=== PATIENT | female | born 1945 | race Caucasian/White ===

== ENCOUNTER 2021-12-12 09:16 | Emergency (ER) | payer MEDICARE ==
[~2021-12-12 09:16] MED LIST: ADULT LOW DOSE81 MG PO; ADVAIR 500-501 EACH INH; AMBIEN10 MG PO; ATIVAN1 MG PO; ATROVENT INH S2.5 ML NEB; DAILY MULTIPLE1 EAC1; DIFLUCAN150 MG PO; FEOSOL325 MG PO; ISOSORBIDE MONO30 MG PO; KEFLEX500 MG PO; LANTUS SOL100 UNIT/1 SC; LIPITOR40 MG PO; METOPROLOL SUCC25 MG PO; NEURONTIN 300300 MG PO; NORCO 10-325 T1 EACH PO; NORVASC10 MG PO; ONE DAILY WOME1 EAC1; PERFOROMIS20 MCG/2 M INH; PHENERGAN 25 MG25 M1 PO; PREDNISONE 20 M20 MG PO; PROZAC20 MG PO; PROZAC40 MG; PULMICORT0.5 MG/2 M NEB; SYNTHROID 125125 MCG PO; VENTOLIN/PROVE0.5 ML NEB; VITAMIN B-1000 MCG/M IM; VITAMIN B12-FO1 EACH IM; XOPENEX HFA15 GM INH; ZOLPIDEM TARTRA10 MG PO
[2021-12-12 10:07] LABS: HEMOGLOBIN 13.1 gm/dl (12.3-15.3); RED BLOOD COUNT 3.94 M/UL (4.00-5.10); WHITE BLOOD COUNT 7.6 K/UL (4.5-11.0)
[2021-12-12] MEDS ORDERED: ZOFRAN ODT 4 MG4 MG SL (14:51)
== END 2021-12-12 15:41 | disposition home or self-care (01) ==
LOC: ER1 09:16
PROVIDERS: Emergency Medicine
DX: R11.2 Nausea with vomiting, unspecified (principal); R19.7 Diarrhea, unspecified; R10.30 Lower abdominal pain, unspecified; I10 Essential (primary) hypertension; Z98.84 Bariatric surgery status
CPT/HCPCS: 80053; 81001; 83690; 85025; 96361; 96374; 96375; 96376; 99284; J2270; J2405; Q9967

== ENCOUNTER 2021-12-24 16:27 | Emergency (ER) | payer MEDICARE ==
[~2021-12-24 16:27] MED LIST changes: +ZOFRAN ODT 4 MG4 MG SL
[2021-12-24 18:44] LABS: HEMOGLOBIN 12.2 gm/dl (12.3-15.3); RED BLOOD COUNT 3.7 M/UL (4.00-5.10); WHITE BLOOD COUNT 15.4 K/UL (4.5-11.0)
[2021-12-24 19:45] LABS: BUN/CREATININE RATIO 14 (0-10)
== END 2021-12-24 22:02 | disposition home or self-care (01) ==
LOC: ER1 16:27
PROVIDERS: Student in an Organized Health Care Education/Training Program
DX: K62.5 Hemorrhage of anus and rectum (principal); K83.9 Disease of biliary tract, unspecified; I10 Essential (primary) hypertension; Z51.81 Encounter for therapeutic drug level monitoring
CPT/HCPCS: 80053; 82150; 82272; 83690; 85025; 85610; 99284

== ENCOUNTER → 2022-01-20 | Outpatient (CLI) | payer MEDICARE | LOC: MRI 07:35 | DX: K83.1 Obstruction of bile duct (principal) | CPT/HCPCS: 74183; A9577 ==

== ENCOUNTER → 2022-02-19 | Outpatient (CLI) | payer MEDICARE, OTHER ==
[~2022-02-19] MED LIST changes: +ATIVAN0.5 MG PO; +CARVEDILOL25 MG PO; +ESCITALOPRAM OX10 MG PO; +HYDROCODON-ACE1 EAC4 PO; +JARDIANCE25 MG PO; +MIRTAZAPINE15 MG PO; +OMEPRAZOLE40 MG PO; +ONDANSETRON HCL4 MG PO; +ROPINIROLE HCL1 MG PO; -SYNTHROID 125125 MCG PO; +SYNTHROID 137137 MCG PO; +WIXELA 250-501 EACH INH
[2022-02-19 15:57] LABS: RED BLOOD COUNT 4.56 M/UL (4.00-5.10); WHITE BLOOD COUNT 10.3 K/UL (4.5-11.0)
== END ==
LOC: LAB 14:53
PROVIDERS: Family Medicine
DX: R19.7 Diarrhea, unspecified (principal)
CPT/HCPCS: 36415; 80053; 85025

== ENCOUNTER 2022-02-22 10:56 | Inpatient (IN) | payer MEDICARE, OTHER ==
[~2022-02-22] VITALS: Ht 160 cm; Wt 77.1 kg
[~2022-02-22 10:56] MED LIST changes: -CARVEDILOL25 MG PO; -ESCITALOPRAM OX10 MG PO; -JARDIANCE25 MG PO; -MIRTAZAPINE15 MG PO; -OMEPRAZOLE40 MG PO; -ONDANSETRON HCL4 MG PO; -ROPINIROLE HCL1 MG PO
[2022-02-22 12:40] LABS: ADENOVIRUS F 40/41 Not Detected (Negative); ASTROVIRUS Not Detected (Negative); CAMPYLOBACTER Not Detected (Negative); CRYPTOSPORIDIUM Not Detected (Negative); E.COLI 0157 Not Detected (Negative); ENTAMOEBA HISTOLYTICA Not Detected (Negative); ENTEROAGGREGATIVE E.COLI (EAEC Not Detected (Negative); ENTEROPATHOGENIC E.COLI (EPEC) Not Detected (Negative); ENTEROTOXIGENIC E.COLI (ETEC) Not Detected (Negative); GIARDIA LAMBLIA Not Detected (Negative); NOROVIRUS GI/GII Not Detected (Negative); PLESIOMONAS SHIGELLOIDES Not Detected (Negative); ROTOVIRUS A Not Detected (Negative); SALMONELLA Not Detected (Negative); SAPOVIRUS Not Detected (Negative); SHIG/ENTEROINVAS.ECOLI (EIEC) Not Detected (Negative); SHIGA-LIK TOX.PRO.E.COLI (STEC Not Detected (Negative); VIBRIO Not Detected (Negative); VIBRIO CHOLERAE Not Detected (Negative); YERSINIA ENTEROCOLITICA Not Detected (Negative)
[2022-02-22 12:40] LABS: HEMOGLOBIN 14.8 gm/dl (12.3-15.3); RED BLOOD COUNT 4.44 M/UL (4.00-5.10)
[2022-02-22 15:48] LABS: CLOSTRIDIUM DIFFICILE TOX A/B Not Detected (Negative)
[2022-02-22] MEDS ORDERED: ESCITALOPRAM OX10 MG PO (15:54)
[2022-02-22] MEDS ORDERED: MIRTAZAPINE15 MG PO (15:56)
[2022-02-22] MEDS ORDERED: ONDANSETRON HCL4 MG PO (15:58)
[2022-02-22] MEDS ORDERED: ROPINIROLE HCL1 MG PO ×2 (15:59)
[2022-02-22] MEDS ORDERED: CARVEDILOL25 MG PO (16:04)
[2022-02-22] MEDS ORDERED: OMEPRAZOLE40 MG PO (16:05)
[2022-02-22] MEDS ORDERED: JARDIANCE25 MG PO (16:06)
[2022-02-23 06:38] LABS: RED BLOOD COUNT 4.05 M/UL (4.00-5.10); WHITE BLOOD COUNT 9.1 K/UL (4.5-11.0)
[2022-02-24 07:02] LABS: HEMOGLOBIN 13.6 gm/dl (12.3-15.3); RED BLOOD COUNT 4.23 M/UL (4.00-5.10)
--- NOTE | 2022-02-24 11:38 | NUR ---
REPORT CALLED TO NERY AT [facility], PATIENT WILL BE GOING TO 5TH FLOOR, ROOM 33. AWAITING AMBULANCE. IV LEFT IN PLACE, GOOD BLOOD RETURN, FLUSHES WELL. NO REDNESS OR LEAKAGE.
[2022-02-24] MEDS ORDERED: MERREM IV (11:59)
[2022-02-24] MEDS ORDERED: K-TAB ER20 MEQ PO (11:59)
== END 2022-02-24 13:51 | disposition short-term general hospital (02) | DRG 372 ==
LOC: ER1 10:56 → MED SURG 4 18:06 → CDU 18:06 → MED SURG 4 18:32
PROVIDERS: Internal Medicine; Physician Assistant; ADMIT Internal Medicine
DX: A07.2 Cryptosporidiosis (principal); N17.9 Acute kidney failure, unspecified; Z20.822 Contact with and (suspected) exposure to COVID-19; N30.00 Acute cystitis without hematuria; E86.0 Dehydration; R19.7 Diarrhea, unspecified; E87.6 Hypokalemia; E83.42 Hypomagnesemia; E03.9 Hypothyroidism, unspecified; F41.9 Anxiety disorder, unspecified; E11.649 Type 2 diabetes mellitus with hypoglycemia without coma; K62.3 Rectal prolapse; G89.4 Chronic pain syndrome; I10 Essential (primary) hypertension; E78.5 Hyperlipidemia, unspecified; I25.10 Atherosclerotic heart disease of native coronary artery without angina pectoris; Z95.5 Presence of coronary angioplasty implant and graft; Z90.49 Acquired absence of other specified parts of digestive tract; Z90.710 Acquired absence of both cervix and uterus; Z98.84 Bariatric surgery status; Z80.0 Family history of malignant neoplasm of digestive organs; Z80.1 Family history of malignant neoplasm of trachea, bronchus and lung
CPT/HCPCS: 36415; 80048; 80053; 81001; 82962; 83036; 83690; 83735; 85025; 87077; 87086; 87186; 87507; 93005; 94640; 94664; 94760; 96360; 99285; J0696; J2185; J2405; J3475; U0002